=== PATIENT | male | born 1950 ===

== ENCOUNTER → 2025-05-13 12:42 | Outpatient (AMB) | payer MEDICARE, SELFPAY ==
--- NOTE | 2025-05-13 12:54 | MHC.OFFVIS ---
Intake Visit Reasons: BL CTS Allergies diphth,pert(acell),tetan,polio vacc,component 1of2 (From Pentacel DTaP-IPV Compnt (PF)) Allergy (Unknown, Verified 05/12/25 10:25) Swelling Medication List - Last Reconciled 05/13/25 by Brendan Razo MD aspirin 81 mg PO DAILY atorvastatin 80 mg PO DAILY carvedilol mg PO empagliflozin (Jardiance) 10 mg PO DAILY ezetimibe 10 mg PO DAILY ferrous sulfate (FeroSul) mg PO furosemide 20 mg PO ONCE levothyroxine 125 mcg PO DAILY metformin 1,000 mg PO BID mirtazapine 15 mg PO BEDTIME pantoprazole 40 mg PO DAILY sacubitril-valsartan 24-26 mg tabs PO HPI Comments Details: This is a 75-year-old right-handed man with cardiomyopathy with a low ejection fraction of 25%, intraventricular defibrillator pacemaker coronary artery disease, congestive heart failure, 30 years of type 2 diabetes, hypothyroidism who is here after having multiple falls mostly after getting up quickly and having syncopal episodes for less than a minute. On at least a couple of occasions he has hit his head and had a scalp laceration including an episode on 02/10/2025 when he had a scalp laceration and an intraventricular hemorrhage. Sometimes when he gets out of the car he feels lightheaded and has to stop. Most of the time when he has fallen as if he has gotten up from a sitting position. This 1st started happening in 2023 and he has had a total of 3 or 4 episodes. He is known to have low blood pressure as well. [facility] Medical History (Updated 05/13/25 @ 13:58 by Brendan Razo MD) Intracranial hemorrhage Biventricular ICD (implantable cardioverter-defibrillator) in place HTN (hypertension) Type 2 diabetes mellitus without complication, with long-term current use of insulin Coronary disease Bilateral carpal tunnel syndrome CHF (congestive heart failure) Cardiomyopathy Review of Systems Const Details: head trauma in Feb 2025 from a fall Reports frequent falls ENT Reports dizziness Card Reports syncope Neuro Reports dizziness, Reports syncope and Reports frequent falls Physical Exam Vital Signs: Blood pressure in the sitting position 130/51 with a heart rate of 81. Blood pressure standing 135/58 with a heart rate of 89 Neuro Other: ?Mini Mental Status Exam Level of Consciousness:?Alert.? Orientation:?Knows correct year, month, date, day and season.?Knows correct city, county and state. Knows correct location and floor.? Registration:?Able to register 3 objects.? Attention:?Serial 7's performed accurately.? Recall:?Able to recall 3 out of 3 objects.? Language:?Normal spontaneous speech, fluency, repetition, naming, comprehension, reading, and writing.? Total Score:?30/30.? Neurological Abnormal neurological findings:??Atrophy of the abductor pollicis brevis bilaterally with corresponding weakness and loss of sensation in the median nerve distribution bilaterally.? Mental Status:?Alert and oriented X 3.?Normal attention, orientation, memory, and affect.? Cranial Nerves:?Pupils are equal, round and reactive to light. Fundoscopy shows normal disc bilaterally. External occular muscles are intact. Visual escobedo are full, no ptosis. Face is symmetrical, no facial weakness or droop. Facial sensations are normal. Tongue protrudes in midline. Palate elevates symmetrically. Shoulder shrugging is normal.? Motor Examination:?Normal muscle tone, bulk and strength.?No atrophy or fasciculations.?No drift of the extended upper extremities.?Deep tendon reflexes are 2+.?Plantars are flexor.? Motor Strength:? Proximal Muscles (out of 5):?5 Distal Muscles (out of 5):?5 Neck Flexors (out of 5):?5 Neck Extensors (out of 5):?5 Deltoid (out of 5):?5 Biceps (out of 5):?5 Triceps (out of 5):?5 Serratus Anterior (out of 5):?5 Wrist Extensors (out of 5):?5 APB (out of 5):?3/5 Finger Spread (out of 5):?5 Ileopsoas (out of 5):?5 Quadriceps (out of 5):?5 Hamstrings (out of 5):?5 Tibialis Anterior (out of 5):?5 Peronei (out of 5):?5 EDB (out of 5):?5 Gastrocnemius (out of 5):?5 Straight Leg Raising:?90 degrees.? Sensory Exam:?Normal light touch, temperature, pinprick, vibration and joint-position sensations.?Rhomberg sign is absent.? Coordination:?No ataxia,?no titubation,?pewveq-xk-[id number], vahe-jbov-vfhr test, and rapid alternating movements were normal.? Gait Exam:?Within normal limits.? Cerebellar Signs:?[id number] and vkmp-dm-gpzg is normal.?No dysdiadochokinesia.? Extrapyramidal System:?No tremor or?rigidity, normal facial expressions.?No bradykinesia. No bradyphrenia. Normal arm swing and posture. No propulsion or retropulsion.? Speech:?Normal,?no dysphasia or dysarthria.? General Examination GENERAL APPEARANCE:??normal,?in no acute distress?,?normal,?in no acute distress.? HEAD:??normocephalic,?atraumatic.? EYES:??sclera non-icteric,?conjunctiva clear.? EARS:??auditory canal clear,?tympanic membrane intact, clear.? NOSE:??no lesions.? ORAL CAVITY:??gums normal,?mucosa moist,?no lesions.? THROAT:??clear.? NECK/THYROID:??no cervical lymphadenopathy,?thyroid normal,?neck supple, full range of motion,?no carotid bruit.? SKIN:??no rashes,?no significant birthmarks.? HEART:??S1, S2 normal,?no murmurs?,?S1, S2 normal,?no murmurs.? LUNGS:??clear anteriorly and posteriorly?,?clear anteriorly and posteriorly.? CHEST:??no gross rib deformity,?clear to auscultation.? BACK:??normal exam of spine.? MUSCULOSKELETAL:??normal.? EXTREMITIES:??no edema?,?no edema.? PERIPHERAL PULSES:??normal.? PSYCH:??alert, oriented,?cognitive function intact,?cooperative with exam?,?alert, oriented,?cognitive function intact,?cooperative with exam.? Assessment & Plan Assessment & Plan (1) Syncope and collapse: Comment: Probably related to low blood pressure low ejection fraction and multiple medications and possibly arrhythmia which has been documented in the past with a SVT but now has a pacemaker defibrillator. It does not sound like a seizure. There is also some elements of orthostatic hypotension which can not be adequately addressed because he needs these medications and any attempt to elevate the blood pressure may have adverse effects to his congestive heart failure and his low ejection fraction Code(s): R55 - Syncope and collapse Category: Medical (2) Bilateral carpal tunnel syndrome: Comment: Appears chronic and advanced Code(s): G56.03 - Carpal tunnel syndrome, bilateral upper limbs Category: Medical (3) Intracranial hemorrhage: Comment: Posttraumatic. Appears to have resolved Code(s): I62.9 - Nontraumatic intracranial hemorrhage, unspecified Category: Medical Plan Who have limited options in treating his symptoms of orthostatic hypotension and syncope which appears to be a multi factorial including some orthostatic hypotension, medications that he needs for his congestive heart failure and arrhythmias. I have suggested that he bumped his legs and stand up carefully after he has been sitting for awhile and hold on for a minute before he starts to walk. The other alternative would be to where a Jobst garment or pressure stockings with an ankle pressure of 20 cm which is not easy to wear or put on . Coding Level of Care Code New Pt Level 5 (87980) Diagnoses Syncope and collapse R55 Bilateral carpal tunnel syndrome G56.03 Intracranial hemorrhage I62.9
--- OUTSIDE RECORDS SUMMARY | 2025-05-13 15:20 | XMS_ITS | Clinical Summary ---
Author Organization [facility] Address [address] [place] [address] Care Team Providers Care Gas Main Fitter Name Role Phone Feliberto Sifuentes MD Primary Care Provider Unavailab le Medications No known medications Active Problems No known active problems Social History Tobacco Use Types Packs/Day Years Used Date Smoking Tobacco: Never Smokeless Tobacco: Never Tobacco Cessation:Counseling Given: Not Answered Alcohol Use Standard Drinks/Week Comments Never 0 (1 standard drink = 0.6 oz pur e alcohol) Sex and Gender Information Value Date Recorded Sex Assigned at Not on file Gender Identity Not on file Sexual Orientation Not on file Job Start Date Occupation Industry Not on file Not on file Not on file Last Filed Vital Signs Vital Sign Reading Time Taken Comments Blood Pressure 134/62 08/15/2022 2:26 PM EST Pulse 95 08/15/2022 2:26 PM EST Temperature 37 C (98.6 F) 08/15/2022 2:26 PM EST Respiratory Rate - - Oxygen Saturation 96% 08/15/2022 2:26 PM EST Inhaled Oxygen Concentration - - Weight 89.4 kg (197 lb) 08/15/2022 2:26 PM EST Height - - Body Mass Index - - Plan of Treatment Health Maintenance Due Date Last Done Comments Hepatitis C Screening 1950 COVID-19 Vaccine (#1) 1949 Depression Screening 1961 Preventative Health Evaluation 1967 DTap / Tdap / Td (1 - Tdap) 01/14/1968 Shingrix-Zoster Vaccine (1 of 2) 1999 Fall Risk Assessment 2014 Pneumococcal Vaccine (1 of 1 - PCV) 2014 RSV Adult > 60+ Yrs or Pregn ant (1 - 1-dose 75+ series) 01/14/2024 Influenza Vaccine (#1) 2025 Hepatitis B Vaccines Aged Out No long er eligible based on patient's age to complete this topic RSV Ped < 20 months Aged Out No longe r eligible based on patient's age to complete this topic Care Teams Gas Main Fitter Relationship Specialty Start Date End Date Feliberto Sifuentes MD PCP - General Internal Medicine 07/31/22
== END ==
PROVIDERS: PCP Internal Medicine; Visit Provider Psychiatry & Neurology Neurology
DX: R55 Syncope and collapse (principal); G56.03 Carpal tunnel syndrome, bilateral upper limbs; I62.9 Nontraumatic intracranial hemorrhage, unspecified
CPT/HCPCS: 99203

== ENCOUNTER → 2025-05-13 12:42 | Outpatient (BNVA) | payer OTHER, SELFPAY | PROVIDERS: PCP Internal Medicine; Visit Provider Psychiatry & Neurology Neurology | DX: R55 Syncope and collapse (principal); G56.03 Carpal tunnel syndrome, bilateral upper limbs; I62.9 Nontraumatic intracranial hemorrhage, unspecified | CPT/HCPCS: 99202 ==